=== PATIENT | female | born 1995 | race Caucasian/White ===

== ENCOUNTER 2020-11-21 09:12 | Emergency (ER) | payer OTHER, SELFPAY ==
--- NOTE | ~2020-11-21 | CT_ITS ---
EXAMINATION: CT abdomen pelvis wo con EXAM DATE: 11/21/2020 11:08 INDICATION: Low back pain. History kidney stones. TECHNIQUE: Spiral CT of the abdomen and pelvis was performed without contrast. Axial, coronal and sag ittal images were reviewed. The dose-length product (DLP) for this examination was 177.42 mGy-cm. T he exposure was tailored according to patient size (auto mA exposure control), and iterative reconstr uction (ASIR) was used as additional dose reduction technique. There is no prior study for compariso n. FINDINGS: There is faint medullary nephrocalcinosis. No discrete calyceal stones or hydronephrosis. There is IUD which appears to be centrally located within the endometrium, expected position. The bl adder is unremarkable. The liver, spleen, adrenal glands and pancreas are unremarkable. Gallbladder is unremarkable. No biliary obstruction. There is no retroperitoneal or pelvic lymphadenopathy. The appendix is not positively visualized. There is no pericecal inflammatory change to suggest appe ndicitis. The stomach and small bowel are unremarkable. There is expected amount of colonic stool. No free intraperitoneal gas. The heart is normal in size. There are no pericardial or pleural e ffusions. The lung bases are unremarkable. There are no osteoblastic or osteolytic lesions identifi ed. IMPRESSION: 1. Faint medullary nephrocalcinosis. 2. No hydronephrosis or acute intra-abdominal findings. Reviewed, dictated and finalized at location B.
[2020-11-21 09:19] VITALS: BP 110/80; PULSE 96; RESP 18; TEMP 37.1; O2SAT 100
[2020-11-21 09:40] LABS: Basophils Percent Auto 0.3 % (0.2-1.2); Eosinophils Percent Auto 0.3 % (0-4.4); Hematocrit 43.3 % (37.0-47.0); Hemoglobin 14.4 g/dL (12.0-15.0); Immature Granulocyte Absolute 0.07 K/mm3 (0.00-0.031); Immature Granulocyte Percent A 0.6 % (0-0.5); Lymphocytes Absolute Auto 0.51 K/mm3 (0.9-3.2); Lymphocytes Percent Auto 4.3 % (18.3-44.2); Mean Corpuscular HGB Conc 33.3 g/dl (32-36); Mean Corpuscular Volume 90.2 fl (80-100); Mean Platelet Volume 10.9 fl (7.4-10.4); Monocytes Absolute Auto 0.5 K/mm3 (0.1-0.6); Monocytes Percent Auto 4.4 % (2.6-8.5); Neutrophils Absolute Auto 10.6 K/mm3 (1.3-6.7); Neutrophils Percent Auto 90.1 % (45.5-73.1); Platelet Count Result 238 k/mm3 (150-375); Red Cell Distribution Width 12.4 % (11.5-14.5); White Blood Count 11.8 K/mm3 (4.5-10.0)
[2020-11-21 10:17] LABS: Alanine Aminotransferase 15 U/L (4-35); Albumin Level 4.7 g/dL (3.5-5.1); Alkaline Phosphatase 71 U/L (38-126); Anion Gap 10 mmol/L (8-16); Aspartate Amino Transferase 24 U/L (14-36); Bilirubin,Total 0.5 mg/dL (0.2-1.3); Blood Urea Nitrogen 19 mg/dL (7-17); Calcium 9.2 mg/dL (8.4-10.2); Carbon Dioxide 27 mmol/L (22-30); Chloride 102 mmol/L (98-107); Estimated CRCL calculation 92 ml/min; Estimated Glomerular Filt Rate > 60; Glucose 111 mg/dL (65-110); Lipase 81 U/L (23-300); Potassium 4.2 mmol/L (3.4-5.0); Sodium 139 mmol/L (137-145)
[2020-11-21 10:23] LABS: Add Urine Microscopic? YES; Appearance Urine Clear (Clear); Bacteria Urine Trace /hpf; Bilirubin Urine Negative (Negative); Blood Urine Negative (Negative); Color Urine Yellow (Yellow); Glucose Urine UA Negative (Negative); Ketones Urine Negative (Negative); Leukocyte Esterase Ur Negative LEU/UL (Negative); Mucus Urine Few /lpf; Nitrate Urine Negative (Negative); Protein Urine 1+ mg/dL (Negative); Specific Grav Ur 1.026 (1.001-1.035); Squamous Epithelial Cell Urine Many /hpf (Few); Urobilinogen Urine Negative mg/dL (<2.0); WBC Urine 0-3 /hpf
--- NOTE | 2020-11-21 10:53 | ED.GENADULT ---
HPI - General Adult General Chief complaint: Nausea/Vomiting/Diarrhea Stated complaint: back pain, n/v Time Seen by Provider: 11/21/20 10:01 Source: patient Mode of arrival: ambulatory Limitations: no limitations History of Present Illness HPI narrative: Patient is 25 years old white female presented to the ED with nausea, vomiting and right mid back pain started at 2 AM patient also complaining of burning urination was frequency started 2 weeks ago, had negative UA recently and another negative UA this morning at urgent care prior to arrival to our emergency room. Patient is fully vaccinated for COVID-19, last menstrual cycle few days ago, patient denies any abdominal pain. Patient complaining of chills, patient reported some vaginal itching, denies any discharge, patient sexually active. Related Data Allergies Allergy/AdvReac Type Severity Reaction Status Date / Time No Known Allergies Allergy Verified 11/21/20 09:25 Review of Systems Review of Systems: CONSTITUTIONAL: Denies fever, chills, or sweats. EYES: Denies visual changes, redness, or discharge. ENT: Denies rhinorrhea, congestion, sore throat, or otalgia. CARDIOVASCULAR: Denies chest pain, palpitations, or edema. RESPIRATORY: Denies cough or dyspnea. GASTROINTESTINAL: Denies abdominal pain, nausea, vomiting, or diarrhea. GENITOURINARY: Denies dysuria or hematuria. SKIN: Denies rash or itching. MUSCULOSKELETAL: Denies back pain, joint pain, or myalgia. NEUROLOGIC: Denies headache, numbness, or weakness. PSYCHIATRIC: Denies anxiety or depression. PMFSH Past Medical History Medical History ADD (attention deficit disorder) Family History Family History Other Family history of alcoholism Family history of malignant neoplasm Hypertension Social History Social History Smoking status: Never smoker Alcohol intake: current Exam Narrative: General appearance: Well-developed, well-nourished Skin: Normal color Head: Normocephalic, nontraumatic Eyes: Clear conjunctiva ENT: Oropharynx normal, ears normal, nose normal Neck: Supple, nontender Chest and respiratory: Airway patent, no respiratory distress, no accessory muscle use Heart: Regular rate/rhythm Abdomen: Soft, nontender, no organomegaly, quiet bowel sounds Vascular: Normal peripheral pulses, normal capillary refill. 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, no gross motor deficit : External Female Exam: normal external appearance Speculum Exam - Vagina: normal appearance of the vagina Speculum Exam - Cervix: normal appearance of the cervix and Cervical os closed Bimanual Exam- Adnexa, other: normal adnexae and No adnexal tenderness OB/external & speculum: vaginal discharge (Yellowish, whitish vaginal discharge, copious amount) Course Course Emergency Course: Stable Vital Signs Vital signs: Vital Signs Temperature 37.1 C 11/21/20 09:19 Pulse Rate 96 11/21/20 09:19 Respiratory Rate 18 11/21/20 09:19 Blood Pressure 110/80 11/21/20 09:19 Pulse Oximetry 100 11/21/20 09:19 Temperature 37.1 C 11/21/20 09:19 Pulse Rate 88 11/21/20 11:19 Respiratory Rate 16 11/21/20 11:19 Blood Pressure 103/57 L 11/21/20 11:19 Pulse Oximetry 97 11/21/20 11:19 Medical Decision Making [facility] Narrative Medical decision making narrative: Patient presents with back pain, pyelonephritis is my concern. Labs, IV fluid ordered. Differential Diagnosis Differential Diagnosis: Kidney st
[2020-11-21 11:19] VITALS: BP 103/57; PULSE 88; RESP 16; O2SAT 97
[2020-11-21] MEDS: SODIUM CHLORIDE 0.9% IV 1,000 ML 999 ML IV CONT (11:19)
[2020-11-21] MEDS: ONDANSETRON INJ 4 MG/2 ML VIAL IV PUSH (11:19)
[2020-11-21] MEDS: FLUCONAZOLE 150 MG TABLET PO (13:21)
[2020-11-21 13:27] VITALS: BP 127/68; PULSE 75; RESP 18; O2SAT 99
== END 2020-11-21 13:28 | disposition home or self-care (01) ==
PROVIDERS: Emergency Provider Emergency Medicine; PCP Internal Medicine
DX: R30.0 Dysuria (principal); N89.8 Other specified noninflammatory disorders of vagina
CPT/HCPCS: 36415; 74176; 80053; 81001; 81025; 83690; 85025; 87491; 87591; 87808; 96361; 96374; 99284; A9270; J2405; J7030